=== PATIENT | female | born 1970 | race Caucasian/White ===

== ENCOUNTER 2025-06-03 15:19 | Emergency (ER) | payer MEDICARE, OTHER ==
[~2025-06-03] VITALS: Ht 170.2 cm; Wt 59.0 kg
[2025-06-03] MEDS ORDERED: BACLOFEN20 MG PO ×2 (15:45→16:06)
[2025-06-03] MEDS ORDERED: BACLOFEN 10 MG TAB PO ONE (16:00)
[2025-06-03 16:27] VITALS: BP 90/64
== END 2025-06-03 16:28 | disposition home or self-care (01) ==
LOC: ED 15:19
DX: G82.20 Paraplegia, unspecified (principal); Z76.0 Encounter for issue of repeat prescription; Z88.5 Allergy status to narcotic agent; Z88.2 Allergy status to sulfonamides
CPT/HCPCS: 99281